=== PATIENT | male | born 1980 | race Caucasian/White ===

== ENCOUNTER 2017-04-16 05:38 | Emergency (ER) | payer OTHER ==
[2017-04-16] MEDS ORDERED: KETOROLAC 15 MG/1 ML SDV IVP ONE (05:46)
[2017-04-16 05:48] VITALS: TEMP 98.1
--- NOTE | 2017-04-16 05:50 | EDPHY ---
H & P Time Seen by Provider: 04/16/17 05:45 HPI/ROS: Chief Complaint: Back pain HPI: 37-year-old male woke with low back pain this morning. Denies any falls or traumas. Has a history to that degenerative disc disease in the past. He took some CBD or without any relief. He called EMS. At rest his pain is about a 6/10. With movement but it a 10. No new numbness or weakness. No fevers or chills. Does not use IV drugs. He refused pain medications from EMS. No urinary urgency or frequency or retention. He has been ambulating with some discomfort. Does have a similar episodes in the past but none recently. ROS: 10 point Review of Systems is negative except as noted in the HPI. PMH: Degenerative disc disease Social History: No smoking, no alcohol, positive for marijuana Family History: non-contributory Physical Exam: Gen: Awake, Alert, uncomfortable HEENT: Nose: no rhinorrhea Eyes: PERRLA, EOMI Mouth: Moist mucosa Neck: Supple, no JVD Chest: nontender, lungs clear to auscultation Heart: S1, S2 normal, no murmur Abd: Soft, non-tender, no guarding Back: no CVA tenderness, no midline tenderness moderate bilateral paraspinal tenderness Ext: no edema, non-tender Skin: no rash Neuro: CN II-XII intact, Sensation grossly intact, Strength 5/5 in bilateral upper and lower extremities, toes are downgoing, 2+ deep tendon reflexes, sensations intact, full dorsiflexion strength. Constitutional: Initial Vital Signs Temperature (C) 36.7 C 04/16/17 05:40 Heart Rate 84 04/16/17 05:40 Respiratory Rate 18 04/16/17 05:40 Blood Pressure 150/70 H 04/16/17 05:40 O2 Sat (%) 98 04/16/17 05:40 O2 Delivery Mode Room Air Allergies/Adverse Reactions: No Known Allergies Allergy (Unverified 04/16/17 05:49) Home Medications: Medication Instructions Recorded Albuterol [Ventolin Hfa Inhaler] 200 puffs IH 04/16/17 Cbd Oil 04/16/17 Divalproex [Depakote] 250 mg PO BID 04/16/17 Duloxetine HCl [Cymbalta] 30 mg PO 04/16/17 Medical Decision Making ED Course/Re-evaluation: Patient presenting with lumbar strain. No red flags for acute cauda equina syndrome or epidural abscess. He is improved with analgesia here. Will discharge with back pain instructions, follow up with primary care, return for worsening - Data Points Medications Given: Lidocaine (Lidoderm 5%) 1 ea TD DAILY CASSI Stop: 10/13/17 08:59 Last Admin: 04/16/17 05:57 Dose: 1 ea Discontinued Medications Ketorolac Tromethamine (Toradol) 15 mg IVP EDNOW ONE Stop: 04/16/17 05:47 Last Admin: 04/16/17 05:55 Dose: 15 mg Departure - Departure Disposition: Home, Routine, Self-Care Clinical Impression: Lumbar strain Condition: Good Instructions: Low Back Strain (ED), Lower Back Exercises (ED), Core Strengthening Exercises (ED) Additional Instructions: Take ibuprofen, 600 mg, 3 times a day. You may also take acetaminophen, 1000 mg every 6 hours. You may replace the Lidoderm patch once a day. These are available over-the- counter. Make sure to remain active. Did do not lay in bed or sit in a chair for long periods. It is important to remain active and keep your back moving in order to improve. Please see the attached back exercise instructions. Follow up with primary care physician in 3-4 days for further evaluation. Referrals: Rodrigue Lane MD [Medical Doctor] - As per Instructions
[2017-04-16] MEDS ORDERED: LIDOCAINE 5% 1 EA PATCH TD ONE (05:53)
[2017-04-16 06:50] VITALS: BP 149/78; PULSE 72; RESP 16; O2SAT 96
[2017-04-16] MEDS ORDERED: LIDOCAINE 5% 1 EA PATCH TD SCH (09:00)
== END 2017-04-16 06:40 | disposition home or self-care (01) ==
DX: S39.012A Strain of muscle, fascia and tendon of lower back, initial encounter (principal); X58.XXXA Exposure to other specified factors, initial encounter; Y99.8 Other external cause status
CPT/HCPCS: 96374; J1885